=== PATIENT | male | born 1970 | race Two or more races ===

== ENCOUNTER 2018-12-10 13:36 | Outpatient (CLI) | payer OTHER | END 2018-12-10 15:00 | disposition home or self-care (01) | LOC: LAB 13:36 | DX: D51.3 Other dietary vitamin B12 deficiency anemia (principal); D51.1 Vitamin B12 deficiency anemia due to selective vitamin B12 malabsorption with proteinuria; I10 Essential (primary) hypertension; E11.9 Type 2 diabetes mellitus without complications; F10.10 Alcohol abuse, uncomplicated; E78.2 Mixed hyperlipidemia; D50.8 Other iron deficiency anemias; D51.8 Other vitamin B12 deficiency anemias; D55.0 Anemia due to glucose-6-phosphate dehydrogenase [G6PD] deficiency; D51.0 Vitamin B12 deficiency anemia due to intrinsic factor deficiency; E06.3 Autoimmune thyroiditis; E03.8 Other specified hypothyroidism; R97.0 Elevated carcinoembryonic antigen [CEA]; R97.20 Elevated prostate specific antigen [PSA]; R97.8 Other abnormal tumor markers ==